=== PATIENT | male | born 1970 | race Caucasian/White ===

== ENCOUNTER 2021-01-22 09:04 | Outpatient (REF) | payer OTHER, SELFPAY ==
[2021-01-22 11:23] LABS: Hematocrit 51.4 % (42-52); Mean Corpuscular HGB Conc 33.1 g/dl (31.0-36.0); Mean Corpuscular Hemoglobin 31.4 pg (27.0-33.0); Mean Platelet Volume 12.9 fL (9.4-12.4); Platelet Count 138 X10*3/uL (160-400); Red Blood Count 5.41 X10*6/uL (4.60-5.80); Red Cell Distribution Width 14.1 % (11.0-16.0); White Blood Count 11.8 X10*3/uL (4.8-10.8)
[2021-01-23 06:06] LABS: Follicle Stimulating Hormone <0.7 mIU/mL (1.6-8.0); Lutenizing Hormone <0.2 mIU/mL (1.5-9.3)
[2021-01-27 14:52] LABS: Testosterone, Free 121.5 pg/mL (35.0-155.0); Testosterone, Total 617 ng/dL (250-1100)
== END 2021-01-22 09:05 | disposition home or self-care (01) ==
LOC: HO.HMGCLDS 09:04
PROVIDERS: Visit Provider Urology
DX: E29.1 Testicular hypofunction (principal); R79.89 Other specified abnormal findings of blood chemistry
CPT/HCPCS: 36415; 83001; 83002; 84402; 84403; 85027

== ENCOUNTER → 2021-02-10 14:12 | Outpatient (BNVA) | payer OTHER, SELFPAY | PROVIDERS: Visit Provider Urology | CPT/HCPCS: Q3014 ==

== ENCOUNTER 2021-08-08 11:53 | Outpatient (REF) | payer OTHER, SELFPAY ==
[2021-08-08 13:46] LABS: Hemoglobin 16.3 g/dl (14.0-18.0); Mean Corpuscular Hemoglobin 32.7 pg (27.0-33.0); Mean Corpuscular Volume 96.4 fL (80-98); Mean Platelet Volume 11.7 fL (9.4-12.4); Platelet Count 134 X10*3/uL (160-400); Red Blood Count 4.98 X10*6/uL (4.60-5.80); Red Cell Distribution Width 13.6 % (11.0-16.0); White Blood Count 7.9 X10*3/uL (4.8-10.8)
[2021-08-08 13:49] LABS: PLT ABN DIST 1
[2021-08-08 14:04] LABS: Prostate Specific Antigen 0.55 ng/mL (<0.05-4.0)
[2021-08-12 15:35] LABS: Testosterone, Total 352 ng/dL (250-1100)
== END 2021-08-08 11:54 | disposition home or self-care (01) ==
LOC: HO.HMGCLDS 11:53
PROVIDERS: Visit Provider Urology
DX: R79.89 Other specified abnormal findings of blood chemistry (principal); N13.8 Other obstructive and reflux uropathy; N40.1 Benign prostatic hyperplasia with lower urinary tract symptoms; E29.1 Testicular hypofunction
CPT/HCPCS: 36415; 84153; 84403; 85027

== ENCOUNTER → 2021-08-14 15:09 | Outpatient (BNVA) | payer OTHER, SELFPAY | PROVIDERS: Visit Provider Urology | DX: R79.89 Other specified abnormal findings of blood chemistry (principal); N52.01 Erectile dysfunction due to arterial insufficiency | CPT/HCPCS: 99212 ==

== ENCOUNTER 2022-02-10 06:44 | Outpatient (REF) | payer OTHER, SELFPAY ==
[2022-02-10 07:24] LABS: Hematocrit 51.7 % (42.0-52.0); Hemoglobin 17.2 g/dl (14.0-18.0); Mean Corpuscular HGB Conc 33.3 g/dl (31.0-36.0); Mean Corpuscular Hemoglobin 31.3 pg (27.0-33.0); Mean Corpuscular Volume 94.2 fL (80.0-98.0); Mean Platelet Volume 12.2 fL (9.4-12.4); Platelet Count 156 X10*3/uL (160-400); Red Blood Count 5.49 X10*6/uL (4.60-5.80); Red Cell Distribution Width 13.3 % (11.0-16.0); White Blood Count 14.5 X10*3/uL (4.8-10.8)
[2022-02-15 12:01] LABS: Testosterone, Total 1097 ng/dL (250-1100)
== END 2022-02-10 06:45 | disposition home or self-care (01) ==
LOC: HO.LAB 06:44
PROVIDERS: Visit Provider Urology
DX: Z12.5 Encounter for screening for malignant neoplasm of prostate (principal); R79.89 Other specified abnormal findings of blood chemistry; N13.8 Other obstructive and reflux uropathy; N40.1 Benign prostatic hyperplasia with lower urinary tract symptoms; E29.1 Testicular hypofunction
CPT/HCPCS: 36415; 84153; 84403; 85027

== ENCOUNTER → 2022-02-17 13:01 | Outpatient (BNVA) | payer OTHER, SELFPAY | PROVIDERS: Visit Provider Urology | DX: N52.01 Erectile dysfunction due to arterial insufficiency (principal); R79.89 Other specified abnormal findings of blood chemistry | CPT/HCPCS: Q3014 ==

== ENCOUNTER 2022-08-13 08:38 | Outpatient (REF) | payer OTHER, SELFPAY ==
[2022-08-13 12:05] LABS: Prostate Specific Antigen 0.59 ng/mL (<0.05-4.0)
[2022-08-19 11:47] LABS: Testosterone, Total 901 ng/dL (250-1100)
== END 2022-08-13 08:39 | disposition home or self-care (01) ==
LOC: HO.HMGCLDS 08:38
PROVIDERS: Visit Provider Urology
DX: Z12.5 Encounter for screening for malignant neoplasm of prostate (principal); R79.89 Other specified abnormal findings of blood chemistry
CPT/HCPCS: 36415; 84153; 84403

== ENCOUNTER → 2022-08-20 12:16 | Outpatient (BNVA) | payer OTHER, SELFPAY | PROVIDERS: Visit Provider Urology | DX: R79.89 Other specified abnormal findings of blood chemistry (principal); N52.01 Erectile dysfunction due to arterial insufficiency | CPT/HCPCS: Q3014 ==

== ENCOUNTER 2023-02-17 08:49 | Outpatient (REF) | payer OTHER, SELFPAY ==
[2023-02-17 11:21] LABS: Hematocrit 49.3 % (42.0-52.0)
[2023-02-23 13:44] LABS: Testosterone, Total 1354 ng/dL (250-1100)
== END 2023-02-17 08:50 | disposition home or self-care (01) ==
LOC: HO.HMGCLDS 08:49
PROVIDERS: Visit Provider Urology
DX: Z12.5 Encounter for screening for malignant neoplasm of prostate (principal); E29.1 Testicular hypofunction; R79.89 Other specified abnormal findings of blood chemistry
CPT/HCPCS: 36415; 84153; 84403; 85014

== ENCOUNTER → 2023-02-25 14:55 | Outpatient (BNVA) | payer OTHER, SELFPAY | PROVIDERS: Visit Provider Urology | DX: N52.01 Erectile dysfunction due to arterial insufficiency (principal) | CPT/HCPCS: Q3014 ==

== ENCOUNTER 2023-10-18 08:18 | Outpatient (REF) | payer OTHER, SELFPAY ==
[2023-10-18 11:27] LABS: Hematocrit 54.3 % (42.0-52.0); Hemoglobin 17.9 g/dl (14.0-18.0); Mean Corpuscular Hemoglobin 31.7 pg (27.0-33.0); Mean Corpuscular Volume 96.1 fL (80.0-98.0); Mean Platelet Volume 12.9 fL (9.4-12.4); Platelet Count 156 X10*3/uL (160-400); Red Blood Count 5.65 X10*6/uL (4.60-5.80); Red Cell Distribution Width 13.4 % (11.0-16.0); White Blood Count 8.6 X10*3/uL (4.8-10.8)
[2023-10-23 13:33] LABS: Testosterone, Total 148 ng/dL (250-1100)
== END 2023-10-18 08:19 | disposition home or self-care (01) ==
LOC: HO.HMGCLDS 08:18
PROVIDERS: Visit Provider Urology
DX: R79.89 Other specified abnormal findings of blood chemistry (principal); Z12.5 Encounter for screening for malignant neoplasm of prostate
CPT/HCPCS: 36415; 84153; 84403; 85027

== ENCOUNTER 2023-10-27 08:38 | Outpatient (AMB) | payer OTHER, SELFPAY ==
--- NOTE | 2023-10-27 08:43 | A.OFFVIS_ITS ---
Intake Intake Visit Reasons: follow up/ labs Intake Note: Patient is Present for Telephone Follow Up labs Urology Med: Sildenafil, Testosterone Antibiotic Allergy: none Blood Thinner:none Allergies No Known Allergies Allergy (Verified 02/25/23 14:56) Medication List - Last Reconciled 10/27/23 by Holger Wing MD atorvastatin 40 mg PO BEDTIME needle (disp) 22 G (BD Regular Bevel Shickley) As directed weekly pantoprazole 40 mg PO DAILY sildenafil 100 mg PO DAILY 30 days syringe with needle (BD Eclipse Luer-Lorena) As directed weekly testosterone cypionate (Depo-Testosterone) 80 mg (0.4 mL) subcut QWEEK 4 weeks HPI HPI Comments History of Present Illness Details Musa PIZARRO is a very pleasant male. He is a patient of Dr Skaggs. He is seen for the following urologic conditions - hypogonadism Telemedicine evaluation 15 minute consultation [facility] isabel Video attempted Taking 0.4 cc per week Current levels low since Has not injected for 3 weeks Refills provided 6 month follow-up labs Hypogonadism: He presents today for further evaluation and followup of his hypogonadism Initial symptoms include erectile dysfunction Yes decreased libido Yes change in mood/depression Yes in muscle size/strength Yes increased fatigue/malaise Yes increased abdominal fat No tender breasts/gynecomastia No hair loss No osteopenia No The onset of symptoms has been Secondary to external testosterone use. Associate conditions include chronic pain with opioid use Yes Methadone obstructive sleep apnea No CAD No obesity No stress - financial, family, employment No heavy alcohol or illicit drug use No Laboratory results 01/17 , baseline, testosterone 10, , LH, FSH < 1 - 08/18 352, PSA 0.55, 48%, 02/16 1097 P 6.8 H 51.7, 08/19 901 0.6, 02/17 1300 P 0.7 Hct 49.3, 10/20 T 148 H 54 Current therapy includes injectable exogenous testosterone - 0.4 cc/week Erectile dysfunction Good response to sildenafil on as needed basis PFSH Medical History Hematuria Hyperlipidemia Mild acid reflux Erectile dysfunction due to arterial insufficiency Low serum testosterone level Surgical History H/O splenectomy Assessment & Plan Assessment & Plan (1) Low serum testosterone level: Code(s): R79.89 - Other specified abnormal findings of blood chemistry (2) Erectile dysfunction due to arterial insufficiency: Code(s): N52.01 - Erectile dysfunction due to arterial insufficiency Plan Six month follow-up labs office Orders: Orders Prostate Specific Antigen 6 Months N52.01 - Erectile dysfunction due to arterial insufficiency Complete Blood Count no Diff 6 Months N52.01 - Erectile dysfunction due to arterial insufficiency Testosterone, Total 6 Months N52.01 - Erectile dysfunction due to arterial insufficiency Patient Instructions: Imaging studies, laboratory and physical exam results were discussed and reviewed in detail. No major barriers to patient understanding were identified. An opportunity to ask questions regarding the treatment plan was provided. All questions were answered. The patient expressed understanding and agreement with the above treatment plan. The patient is aware they should contact our office by phone for worsening of their current condition or the appearance of new urologic symptoms. Compliance is encouraged with any medications and followup testing that is ordered. It is a privilege to participate in the urologic care of your patient. If you have any questions or concerns regarding treatment for the above conditions, or other urologic issues, please do not hesitate to contact me. The office telephone contact is [phone]. This note is constructed using voice recognition software. While every effort has been made to ensure accuracy orthophotography technician errors may have been included. Yours sincerely, Dr Holger Wing MD, [facility] - Urology Providers of Expert, Compassionate Care for the Genitourinary System Telehealth Telehealth Location of provider rendering services: practice address Location of patient: other (work ) Patient Identification confirmed using: Name, : Yes Telehealth method: video Patient verbally consented to treatment: Yes Patient verbally consented to billing insurance company: Yes Patient informed of any privacy concerns related to visit: Yes Coding Level of Care Code Tele Est Pt Level 3 (82727) Diagnoses Low serum testosterone level R79.89 Erectile dysfunction due to arterial insufficiency N52.01
== END 2023-10-27 10:49 | disposition home or self-care (01) ==
LOC: HO.HUSH 08:38
PROVIDERS: Visit Provider Urology
DX: R79.89 Other specified abnormal findings of blood chemistry (principal); N52.01 Erectile dysfunction due to arterial insufficiency
CPT/HCPCS: 99213

== ENCOUNTER → 2023-10-27 08:38 | Outpatient (BNVA) | payer OTHER, SELFPAY | PROVIDERS: Visit Provider Urology ==

== ENCOUNTER 2024-06-01 08:15 | Outpatient (REF) | payer OTHER, SELFPAY ==
[2024-06-01 10:37] LABS: Hematocrit 46.9 % (42.0-52.0); Hemoglobin 15.6 g/dl (14.0-18.0); Mean Corpuscular HGB Conc 33.3 g/dl (31.0-36.0); Mean Corpuscular Hemoglobin 32.4 pg (27.0-33.0); Mean Corpuscular Volume 97.5 fL (80.0-98.0); Mean Platelet Volume 12.9 fL (9.4-12.4); Platelet Count 194 X10*3/uL (160-400); Red Blood Count 4.81 X10*6/uL (4.60-5.80); White Blood Count 15.4 X10*3/uL (4.8-10.8)
[2024-06-01 11:00] LABS: Prostate Specific Antigen 0.89 ng/mL (<0.05-4.0)
[2024-06-05 12:38] LABS: Testosterone, Total 159 ng/dL (250-1100)
== END 2024-06-01 08:16 | disposition home or self-care (01) ==
LOC: HO.HMGCLDS 08:15
PROVIDERS: Visit Provider Urology
DX: N52.01 Erectile dysfunction due to arterial insufficiency (principal); Z12.5 Encounter for screening for malignant neoplasm of prostate
CPT/HCPCS: 36415; 84153; 84403; 85027

== ENCOUNTER 2024-06-06 11:30 | Outpatient (AMB) | payer OTHER, SELFPAY ==
--- NOTE | 2024-06-06 11:33 | MHC.OFFWIV ---
Intake Vital Signs 06/06/24 11:37 Height 5 ft 9 in Weight 175 lb BMI 25.8 BP 130/80 Blood Pressure Location Rt brachial Position Sitting Pulse 78 Pulse Source Pulse Oximeter Temp 97.8 F Temp Source Oral Pulse Oximetry (%) 98 Intake Visit Reasons: Rash upper Torso/vomiting today Intake Note: pt is here for rash upper torso, vomitting today Patient Tobacco Use Status: Current someday Tobacco user Allergies No Known Allergies Allergy (Verified 06/06/24 11:34) Do you need a note to return to daycare/school/sports/work: No HPI HPI Comments History of Present Illness Details Patient is a 54-year-old male complaining of itchy rash times 3 days. He states it is on his torso, his back and a little bit on his legs and arms. He denies any fevers but did say he woke up with a migraine and vomited once, which is now resolved after taking 4 Excedrin. Patient denies any new medications, new detergents, new clothing or lotions. He states he has been sleeping in his truck because he is currently unhoused. He also states he has some depression, and he thinks he had some recent weight loss probably because he has not eating as much as he normally does. He states he is currently on methadone therapy and is compliant with his methadone and all of his medications. [facility] Medical History Hematuria Hyperlipidemia Mild acid reflux Erectile dysfunction due to arterial insufficiency Low serum testosterone level Surgical History H/O splenectomy Social History Patient Tobacco Use Status: Current someday Tobacco user Review of Systems Const All systems reviewed & are unremarkable except as noted in HPI and below Physical Exam Vital Signs: Last Vital Signs Temp 97.8 F 06/06/24 11:37 Pulse 78 06/06/24 11:37 BP 130/80 06/06/24 11:37 Pulse Ox 98 06/06/24 11:37 BMI result Body Mass Index 25.8 Const General: cooperative, healthy appearing, comfortable and no acute distress Orientation/consciousness: patient oriented x3 Limitations: no limitations HEENT Head: Yes normal to inspection Eyes General: appearance normal, both eyes and all related structures Resp Effort & Inspection: normal respiratory effort and able to speak in complete sentences Skin Other: small excoriated papules on lower abdomen, mid back, proximal bilateral knees and a few on bilateral arms, sparing webs of fingers. No signs of infection noted, no ecchymosis, no petechiae, no induration Neuro General: patient oriented x3 Assessment & Plan Assessment & Plan (1) Scabies: Code(s): B86 - Scabies Plan: Educated patient on eradication of scabies, needs to wash all of his clothing, wiped down his truck, explained various specifically on how to use the medication with a repeat in 1-2 weeks. Recommended staying out of work until he does the 1st treatment. Plan See above Medications: New permethrin 5% apply second treatment 14 days after first treatment if live lice remain 1 appl topical Q14D 60 grams 0RF Coding Level of Care Code Est Pt Level 3 (67908) Diagnoses Scabies B86
[2024-06-06 11:37] VITALS: BP 130/80; PULSE 78; TEMP 36.6; O2SAT 98; BMI 25.8
== END 2024-06-06 12:52 | disposition home or self-care (01) ==
PROVIDERS: Visit Provider Physician Assistant
DX: B86 Scabies (principal)
CPT/HCPCS: 99213

== ENCOUNTER 2024-06-29 13:36 | Outpatient (AMB) | payer OTHER, SELFPAY ==
--- NOTE | 2024-06-29 13:39 | MHC.OFFVIS ---
Intake Visit Reasons: follow up CBC/PSA/Testo Intake Note: Patient is present for Telephone LAB Follow up Urology Med: Sildenafil, Testosterone Antibiotic Allergy: None Blood Thinner: None Patient is requesting a refill on his Medications Lockstitch Lining Setter Required: No Accompanied by: Self / Same As Patient Allergies No Known Allergies Allergy (Verified 06/29/24 13:40) HPI Comments Details: Musa PIZARRO is a very pleasant male. He is a patient of Dr Skaggs. He is seen for the following urologic conditions - hypogonadism Telemedicine evaluation 15 minute consultation [employer] isabel Video attempted Taking 0.4 cc per week Current levels low since Has not injected for 3 weeks Refills provided 6 month follow-up labs Hypogonadism: He presents today for further evaluation and followup of his hypogonadism Initial symptoms include erectile dysfunction Yes decreased libido Yes change in mood/depression Yes in muscle size/strength Yes increased fatigue/malaise Yes increased abdominal fat No tender breasts/gynecomastia No hair loss No osteopenia No The onset of symptoms has been Secondary to external testosterone use. Associate conditions include chronic pain with opioid use Yes Methadone obstructive sleep apnea No CAD No obesity No stress - financial, family, employment No heavy alcohol or illicit drug use No Laboratory results 01/17 , baseline, testosterone 10, , LH, FSH < 1 - 08/18 352, PSA 0.55, 48%, 02/16 1097 P 6.8 H 51.7, 08/19 901 0.6, 02/17 1300 P 0.7 Hct 49.3, 10/20 T 148 H 54 Current therapy includes injectable exogenous testosterone - 0.4 cc/week Erectile dysfunction Good response to sildenafil on as needed basis PFSH Medical History Hematuria Hyperlipidemia Mild acid reflux Erectile dysfunction due to arterial insufficiency Low serum testosterone level Surgical History H/O splenectomy Social History Patient Tobacco Use Status: Current someday Tobacco user Review of Systems Const All systems reviewed & are unremarkable except as noted in HPI and below Reports no additional complaints Resp Reports no additional complaints GI Reports no additional complaints Reports as per HPI Musc Reports no additional complaints Physical Exam Telemedicine evaluation Appropriate responses Regular breathing rate and rhythm HEENT Head: Yes normal to inspection Ears: hearing grossly normal bilaterally Eyes General: appearance normal, both eyes and all related structures Neck Neck: Yes normal visual inspection Chest Chest palpation & inspection: normal inspection of the chest Resp Effort & Inspection: normal respiratory effort and able to speak in complete sentences Telehealth Telehealth Telehealth Platform: [employer] Location of provider rendering services: practice address Location of patient: other (work ) Patient Identification confirmed using: Name, : Yes Telehealth method: video Patient verbally consented to treatment: Yes Patient verbally consented to billing insurance company: Yes Patient informed of any privacy concerns related to visit: Yes Minutes spent on Phone/Video with Pt.: 15 Assessment & Plan Assessment & Plan (1) Low serum testosterone level: Code(s): R79.89 - Other specified abnormal findings of blood chemistry Category: Medical (2) Erectile dysfunction due to arterial insufficiency: Code(s): N52.01 - Erectile dysfunction due to arterial insufficiency Category: Medical Plan Six month follow-up lab work Orders: Orders Testosterone, Total 6 Months R79.89 - Other specified abnormal findings of blood chemistry Complete Blood Count no Diff 6 Months R79.89 - Other specified abnormal findings of blood chemistry Prostate Specific Antigen 6 Months R79.89 - Other specified abnormal findings of blood chemistry Medications: Refilled testosterone cypionate (Depo-Testosterone) 80 mg (0.4 mL) subcut QWEEK 2 mL 5RF 4 weeks E29.1 - Testicular hypofunction, [id number] sildenafil administer 60 minutes before intended activity 100 mg PO DAILY 30 tabs 5RF sexual activity 30 days N52.01 - Erectile dysfunction due to arterial insufficiency, N52.9 - Male erectile dysfunction, unspecified syringe with needle (BD Eclipse Luer-Lorena) As directed weekly 50 ea 0RF N52.01 - Erectile dysfunction due to arterial insufficiency Patient Instructions: Imaging studies, laboratory and physical exam results were discussed and reviewed in detail. No major barriers to patient understanding were identified. An opportunity to ask questions regarding the treatment plan was provided. All questions were answered. The patient expressed understanding and agreement with the above treatment plan. The patient is aware they should contact our office by phone for worsening of their current condition or the appearance of new urologic symptoms. Compliance is encouraged with any medications and followup testing that is ordered. It is a privilege to participate in the urologic care of your patient. If you have any questions or concerns regarding treatment for the above conditions, or other urologic issues, please do not hesitate to contact me. The office telephone contact is [phone]. This note is constructed using voice recognition software. While every effort has been made to ensure accuracy petroleum products district supervisor errors may have been included. Yours sincerely, Dr Holger Wing MD, [facility] - Urology Providers of Expert, Compassionate Care for the Genitourinary System Coding Level of Care Code Tele Est Pt Level 3 (40377) Diagnoses Low serum testosterone level R79.89 Erectile dysfunction due to arterial insufficiency N52.01
== END 2024-06-29 14:15 | disposition home or self-care (01) ==
LOC: HO.HUSH 13:36
PROVIDERS: Visit Provider Urology
DX: R79.89 Other specified abnormal findings of blood chemistry (principal); N52.01 Erectile dysfunction due to arterial insufficiency
CPT/HCPCS: 99213

== ENCOUNTER → 2024-06-29 13:36 | Outpatient (BNVA) | payer OTHER, SELFPAY | PROVIDERS: Visit Provider Urology ==

== ENCOUNTER 2024-09-18 09:31 | Outpatient (AMB) | payer OTHER, SELFPAY ==
--- NOTE | 2024-09-18 09:33 | A.OFFVIS_ITS ---
Intake Visit Reasons: Urination Issues/Slow Intake Note: Patient is present for URINATION ISSUES/SLOW Urology Medication:SILDENAFIL, TESTOSTERONE Antibiotic Allergy:NONE Blood Thinner:NONE Bryologist Required: No Allergies No Known Allergies Allergy (Verified 09/18/24 09:34) HPI Comments Details: Musa PIZARRO is a very pleasant male. He is a patient of Dr Skaggs. He is seen for the following urologic conditions - hypogonadism - urination Current issue is postvoid dribbling Information provided about male pelvic floor exercises Continue with testosterone 0.4 cc per week Is on methadone Hypogonadism: He presents today for further evaluation and followup of his hypogonadism Initial symptoms include erectile dysfunction Yes decreased libido Yes change in mood/depression Yes in muscle size/strength Yes increased fatigue/malaise Yes increased abdominal fat No tender breasts/gynecomastia No hair loss No osteopenia No The onset of symptoms has been Secondary to external testosterone use. Associate conditions include chronic pain with opioid use Yes Methadone obstructive sleep apnea No CAD No obesity No stress - financial, family, employment No heavy alcohol or illicit drug use No Laboratory results 01/17 , baseline, testosterone 10, , LH, FSH < 1 - 08/18 352, PSA 0.55, 48%, 02/16 1097 P 6.8 H 51.7, 08/19 901 0.6, 02/17 1300 P 0.7 Hct 49.3, 10/20 T 148 H 54, 06/20 159 Current therapy includes injectable exogenous testosterone - 0.4 cc/week Erectile dysfunction Good response to sildenafil on as needed basis PFSH Medical History Hematuria Hyperlipidemia Mild acid reflux Erectile dysfunction due to arterial insufficiency Low serum testosterone level Surgical History H/O splenectomy Social History Patient Tobacco Use Status: Current someday Tobacco user Review of Systems Const Denies chills and Denies fever(s) Card Reports no additional complaints and Denies syncope Resp Denies cough GI Denies abdominal pain and Denies heartburn Reports as per HPI and Denies change in libido Neuro Denies syncope Psych Denies change in libido Endo Denies change in libido Physical Exam Const General: cooperative, healthy appearing, comfortable and no acute distress Orientation/consciousness: patient oriented x3 HEENT Face and sinus: Yes normal facial exam Mouth: moist mucous membranes Neck Neck: Yes normal visual inspection, Yes full ROM and Yes trachea midline Chest Chest palpation & inspection: normal inspection of the chest Resp Effort & Inspection: normal respiratory effort, able to speak in complete sentences and no respiratory distress GI Inspection: Yes normal to inspection Back/Spine/Pelvis Cervical Spine: normal cervical lordosis Thoracic/Lumbar Spine: thoracic and lumbar spine normal to inspection Skin General skin exam: no rashes or lesions noted Neuro General: patient oriented x3, gait normal, tone normal and moves all extremities Extrem General: Yes normal to inspection and Yes capillary refill normal Results AMB Urinalysis, Automated UA Leukoctes 0 Valerie/uL Last Edit by LEXIE Chong on 09/18/24 09:41 UA Nitrite Negative Last Edit by LEXIE Chong on 09/18/24 09:41 UA Urobilinogen 0.2 mg/dL Last Edit by LEXIE Chong on 09/18/24 09:4 1 UA Protein 0 mg/dL Last Edit by LEXIE Chong on 09/18/24 09:41 UA pH 6.5 Last Edit by LEXIE Chong on 09/18/24 09:41 UA Blood 0 Paul/uL Last Edit by LEXIE Chong on 09/18/24 09:41 UA Specific [place] 1.010 Last Edit by LEXIE Chong on 09/18/24 09: 41 UA Ketone Negative Last Edit by LEXIE Chong on 09/18/24 09:41 UA Bilirubin 0 mg/dL Last Edit by LEXIE Chong on 09/18/24 09:41 UA Glucose 0 mg/dL Last Edit by LEXIE Chong on 09/18/24 09:41 Results Reviewed Results Reviewed: Laboratory Last Values Urine pH (Auto) 6.5 09/18/24 09:40 Specific [place] (Auto) 1.010 09/18/24 09:40 Urine Protein (Auto) 0 mg/dL 09/18/24 09:40 Glucose (UA)(Auto) 0 mg/dL 09/18/24 09:40 Urine Ketones (Auto) Negative 09/18/24 09:40 Urine Blood (Auto) 0 Paul/uL 09/18/24 09:40 Urine Nitrite (Auto) Negative 09/18/24 09:40 Urine Bilirubin (Auto) 0 mg/dL 09/18/24 09:40 Urine Urobilinogen (Auto) 0.2 mg/dL 09/18/24 09:40 Leukocyte Esterase (Auto) 0 Valerie/uL 09/18/24 09:40 Assessment & Plan Assessment & Plan (1) Benign prostatic hyperplasia (BPH) with post-void dribbling: Code(s): N40.1 - Benign prostatic hyperplasia with lower urinary tract symptoms; N39.43 - Post-void dribbling Category: Medical (2) Low serum testosterone level: Code(s): R79.89 - Other specified abnormal findings of blood chemistry Category: Medical (3) Erectile dysfunction due to arterial insufficiency: Code(s): N52.01 - Erectile dysfunction due to arterial insufficiency Category: Medical Plan Keep follow-up Orders: Orders AMB Urinalysis Automated Today Z13.9 - Encounter for screening, unspecified Patient Instructions: Imaging studies, laboratory and physical exam results were discussed and reviewed in detail. No major barriers to patient understanding were identified. An opportunity to ask questions regarding the treatment plan was provided. All questions were answered. The patient expressed understanding and agreement with the above treatment plan. The patient is aware they should contact our office by phone for worsening of their current condition or the appearance of new urologic symptoms. Compliance is encouraged with any medications and followup testing that is ordered. It is a privilege to participate in the urologic care of your patient. If you have any questions or concerns regarding treatment for the above conditions, or other urologic issues, please do not hesitate to contact me. The office te jose contact is [phone]. This note is constructed using voice recognition software. While every effort has been made to ensure accuracy community integration specialist errors may have been included. Yours sincerely, Dr Holger Wing MD, [facility] - Urology Providers of Expert, Compassionate Care for the Genitourinary System Coding Level of Care Code Est Pt Level 3 (43568) Diagnoses Benign prostatic hyperplasia (BPH) with post-void dribbling N40.1; N39.43 Low serum testosterone level R79.89 Erectile dysfunction due to arterial insufficiency N52.01
== END 2024-09-18 10:23 | disposition home or self-care (01) ==
PROVIDERS: Visit Provider Urology
DX: N40.1 Benign prostatic hyperplasia with lower urinary tract symptoms (principal); N39.43 Post-void dribbling; R79.89 Other specified abnormal findings of blood chemistry; N52.01 Erectile dysfunction due to arterial insufficiency; Z13.9 Encounter for screening, unspecified
CPT/HCPCS: 99213

== ENCOUNTER → 2024-09-18 09:31 | Outpatient (BNVA) | payer OTHER, SELFPAY | PROVIDERS: Visit Provider Urology | DX: N40.1 Benign prostatic hyperplasia with lower urinary tract symptoms (principal); N39.43 Post-void dribbling; N52.01 Erectile dysfunction due to arterial insufficiency; R79.89 Other specified abnormal findings of blood chemistry | CPT/HCPCS: 81003; 99212 ==

== ENCOUNTER 2025-01-01 11:42 | Outpatient (AMB) | payer OTHER, SELFPAY ==
--- NOTE | 2025-01-01 11:45 | A.OFFVIS_ITS ---
Intake Visit Reasons: 6m/labs Intake Note: Patient is present for 6M/LABS Urology Medication:SILDENAFIL,TESTOSTERONE Antibiotic Allergy:NONE Blood Thinner:NONE Retail And Promotions Coordinator Required: No Allergies No Known Allergies Allergy (Verified 01/01/25 11:45) HPI Comments Details: Musa PIZARRO is a very pleasant male. He is a patient of Dr Skaggs. He is seen for the following urologic conditions - hypogonadism - urination Current issue is postvoid dribbling Information provided about male pelvic floor exercises Continue with testosterone 0.4 cc per week Is on methadone Hypogonadism: He presents today for further evaluation and followup of his hypogonadism Initial symptoms include erectile dysfunction Yes decreased libido Yes change in mood/depression Yes in muscle size/strength Yes increased fatigue/malaise Yes increased abdominal fat No tender breasts/gynecomastia No hair loss No osteopenia No The onset of symptoms has been Secondary to external testosterone use. Associate conditions include chronic pain with opioid use Yes Methadone obstructive sleep apnea No CAD No obesity No stress - financial, family, employment No heavy alcohol or illicit drug use No Laboratory results 01/17 , baseline, testosterone 10, , LH, FSH < 1 - 08/18 352, PSA 0.55, 48%, 02/16 1097 P 6.8 H 51.7, 08/19 901 0.6, 02/17 1300 P 0.7 Hct 49.3, 10/20 T 148 H 54, 06/20 159 Current therapy includes injectable exogenous testosterone - 0.4 cc/week Erectile dysfunction Good response to sildenafil on as needed basis PFSH Medical History Hematuria Hyperlipidemia Mild acid reflux Erectile dysfunction due to arterial insufficiency Low serum testosterone level Surgical History H/O splenectomy Social History Patient Tobacco Use Status: Current someday Tobacco user Results AMB Urinalysis, Automated UA Leukoctes 0 Valerie/uL Last Edit by LEXIE Chong on 01/01/25 12:09 UA Nitrite Negative Last Edit by LEXIE Chong on 01/01/25 12:09 UA Urobilinogen 0.2 mg/dL Last Edit by LEXIE Chong on 01/01/25 12:0 9 UA Protein 30 mg/dL Last Edit by LEXIE Chong on 01/01/25 12:09 UA pH 6.0 Last Edit by LEXIE Chong on 01/01/25 12:09 UA Blood 10 Paul/uL Last Edit by LEXIE Chong on 01/01/25 12:09 UA Specific [place] 1.015 Last Edit by LEXIE Chong on 01/01/25 12: 09 UA Ketone Negative Last Edit by LEXIE Chong on 01/01/25 12:09 UA Bilirubin 0 mg/dL Last Edit by LEXIE Chong on 01/01/25 12:09 UA Glucose 0 mg/dL Last Edit by LEXIE Chong on 01/01/25 12:09 Results Reviewed Results Reviewed: Laboratory Last Values Urine pH (Auto) 6.0 01/01/25 12:08 Specific [place] (Auto) 1.015 01/01/25 12:08 Urine Protein (Auto) 30 mg/dL 01/01/25 12:08 Glucose (UA)(Auto) 0 mg/dL 01/01/25 12:08 Urine Ketones (Auto) Negative 01/01/25 12:08 Urine Blood (Auto) 10 Paul/uL 01/01/25 12:08 Urine Nitrite (Auto) Negative 01/01/25 12:08 Urine Bilirubin (Auto) 0 mg/dL 01/01/25 12:08 Urine Urobilinogen (Auto) 0.2 mg/dL 01/01/25 12:08 Leukocyte Esterase (Auto) 0 Valerie/uL 01/01/25 12:08 Assessment & Plan Assessment & Plan Orders: Orders Testosterone, Total 6 Months R7 - Other specified abnormal findings of blood chemistry Complete Blood Count no Diff 6 Months - Other specified abnormal findings of blood chemistry Testosterone, Free/Total Today R68.82 - Decreased libido, R7 - Other specified abnormal findings of blood chemistry AMB Urinalysis Automated Today Z13.9 - Encounter for screening, unspecified Prostate Specific Antigen 6 Months R7 - Other specified abnormal findings of blood chemistry Medications: New needle (disp) 22 G (Easy Touch Hypodermic Needle) As directed for T injections 30 ea 0RF R79.89 - Other specified abnormal findings of blood chemistry syringe (disposable) (Monoject TB Luer Lorena) As directed for T administration 60 ea 0RF E29.1 - Testicular hypofunction, R79.89 - Other specified abnormal findings of blood chemistry Coding
--- OUTSIDE RECORDS SUMMARY | 2025-01-01 12:39 | XMS_ITS | Clinical Summary ---
Author Organization [facility] ity Address [address] [place] [address] Care Team Providers Care Wire Repairer Name Role Phone Unavailable Primary Care Provider Unavailabl e Social History Tobacco Use Types Packs/Day Years Used Date Smoking Tobacco: Never Assessed Sex and Gender Information Value Date Recorded Sex Assigned at Not on file Gender Identity Not on file Sexual Orientation Not on file Plan of Treatment Health Maintenance Due Date Last Done Comments DTaP,Tdap,and Td Vaccines (1 - Tdap) 1989 Hepatitis B Vaccines (1 of 3 - 19+ 3-dose series) 1989 Zoster Vaccines (1 of 2) 01/28/2020 Cholesterol Screening (Lipid Panel) 10/30/2022 Colorectal Cancer Screening: Colonoscopy 10/30/2022 Depression Screening 10/30/2022 HIV Screening 10/30/2022 Hepatitis C Screening 10/30/2022 Social Influencers of Health Screening 10/30/2022 COVID-19 Vaccine (2023-2 5 season) 2024 Influenza Vaccine (#1) 2024 HIB Vaccines Aged Out No longer eligi ble based on patient's age to complete this topic HPV Vaccines Aged Out No longer eligi ble based on patient's age to complete this topic Hepatitis A Vaccines Aged Out No long er eligible based on patient's age to complete this topic IPV Vaccines Aged Out No longer eligi ble based on patient's age to complete this topic MMR Vaccines Aged Out No longer eligi ble based on patient's age to complete this topic Meningococcal ACWY Vaccine Aged Out N o longer eligible based on patient's age to complete this topic Pneumococcal Vaccine: Pediat rics (0 to 5 Years) and At-Risk Patients (6 to 64 Years) Aged Out No longer eligible b ased on patient's age to complete this topic RSV Immunization Patients Un gmeini 20 months Aged Out No longer eligible b ased on patient's age to complete this topic Varicella Vaccines Aged Out No longer eligible based on patient's age to complete this topic
== END 2025-01-01 12:34 | disposition home or self-care (01) ==
PROVIDERS: Visit Provider Urology
DX: Z13.9 Encounter for screening, unspecified (principal)

== ENCOUNTER 2025-01-01 12:35 | Outpatient (REF) | payer OTHER, SELFPAY ==
--- OUTSIDE RECORDS SUMMARY | 2025-01-01 13:05 | XMS_ITS | Clinical Summary ---
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
[2025-01-01 13:14] LABS: Hematocrit 48.5 % (42.0-52.0); Hemoglobin 16.6 g/dl (14.0-18.0); Mean Corpuscular HGB Conc 34.2 g/dl (31.0-36.0); Mean Corpuscular Hemoglobin 31.7 pg (27.0-33.0); Mean Corpuscular Volume 92.7 fL (80.0-98.0); Mean Platelet Volume 11.8 fL (9.4-12.4); NRBC Pct Auto 0.4 /100WBC (0.0-0.2); Platelet Count 227 X10*3/uL (160-400); Red Blood Count 5.23 X10*6/uL (4.60-5.80); White Blood Count 13.6 X10*3/uL (4.8-10.8)
[2025-01-01 14:34] LABS: Prostate Specific Antigen 1.56 ng/mL (<0.05-4.0)
[2025-01-06 18:29] LABS: Testosterone, Total 595 ng/dL (250-1100)
[2025-01-08 01:03] LABS: Testosterone, Free 90.4 pg/mL (35.0-155.0); Testosterone, Total 572 ng/dL (250-1100)
== END 2025-01-01 12:36 | disposition home or self-care (01) ==
LOC: HO.10HDL 12:35
PROVIDERS: Visit Provider Urology
DX: Z12.5 Encounter for screening for malignant neoplasm of prostate (principal); R79.89 Other specified abnormal findings of blood chemistry; R68.82 Decreased libido; N52.01 Erectile dysfunction due to arterial insufficiency; N40.1 Benign prostatic hyperplasia with lower urinary tract symptoms; N39.43 Post-void dribbling
CPT/HCPCS: 36415; 81003; 84153; 84402; 84403; 85027; 99212

== ENCOUNTER 2025-05-15 08:28 | Outpatient (AMB) | payer OTHER, SELFPAY ==
[2025-05-15 08:30] VITALS: BP 132/78; PULSE 102; TEMP 36.8; O2SAT 95; BMI 26.2
--- NOTE | 2025-05-15 08:30 | MHC.OFFWIV ---
Intake Vital Signs 05/15/25 08:30 Height 5 ft 9 in Weight 177 lb 6 oz BMI 26.2 BP 132/78 Blood Pressure Location Rt brachial Position Sitting Pulse 102 H Pulse Source Pulse Oximeter Temp 98.2 F Temp Source Oral Pulse Oximetry (%) 95 Oxygen Delivery Method Room Air Intake Visit Reasons: EP fall, lt shoulder pain Intake Note: Pt presents to the office today for c/o a fall yesterday when he fell on his left shoulder. Pt states he also has dentures and chipped his tooth. Patient Tobacco Use Status: Current someday Tobacco user Allergies No Known Allergies Allergy (Verified 05/15/25 08:30) HPI HPI Comments History of Present Illness Details History 55 yo male who presents today for left shoulder pain. 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 He states that he fell on the curb on his face and left shoulder. He states that he chipped his tooth. He states that he hurt his left shoulder. He states that he has been having a constant pain in the front of the left shoulder with no radiation of the pain. He has a bruise and it hurts to touch the area. He states that he has pain with lifting the arm. He has no pain in the arm. He has not taken anything for the pain. He states that he is on Methadone and had a slip up 2 days ago. 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 He needs a note. He denies numbness or tingling. He denies neck pain, CP, SOB, arm pain, or back pain. Physical Exam General: cooperative, healthy appearing and comfortable, patient oriented x3 Effort & Inspection: normal respiratory effort and able to speak in complete sentences Back/spine: no CVA tenderness bilaterally Neck: No Cervical tenderness Extremities: FROM of the left shoulder. Click noted on the left. Bruise noted on the anterior shoulder. No deformity noted. TTP of the AC joint. No TTP of the upper arm, elbow, or forearm on the left. Supination and pronation of the left UE intact. Lift test normal on the left, normal apprehension test noted. Normal can test noted. Motor strength normal bilaterally, sensation intact bilaterally. 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 [facility] Medical History Hematuria Hyperlipidemia Mild acid reflux Erectile dysfunction due to arterial insufficiency Low serum testosterone level Surgical History H/O splenectomy Social History Patient Tobacco Use Status: Current someday Tobacco user Review of Systems Const All systems reviewed & are unremarkable except as noted in HPI and below Physical Exam Vital Signs: Last Vital Signs Temp 98.2 F 05/15/25 08:30 Pulse 102 H 05/15/25 08:30 BP 132/78 05/15/25 08:30 Pulse Ox 95 05/15/25 08:30 Oxygen Delivery Method Room Air 05/15/25 08:30 BMI result Body Mass Index 26.2 Assessment & Plan Assessment & Plan (1) Shoulder pain, left: Code(s): M25.512 - Pain in left shoulder Qualifiers: Chronicity: acute Qualified Code(s): M25.512 - Pain in left shoulder Plan Most likely contusion vs strain vs fracture vs dislocation Plan - Offered him an x-ray and he declined - Tylenol or Motrin as needed - Activities as tolerated - rest, ice and elevation to the left arm and shoulder - work note was given - follow up with his PCP Coding Level of Care Code New Pt Level 3 (46636) Diagnoses Acute pain of left shoulder M25.512 Chronicity: acute
--- OUTSIDE RECORDS SUMMARY | 2025-05-15 08:50 | XMS_ITS | Clinical Summary ---
Author Organization [facility] it Address [address] [place] [address] Care Team Providers Care Foreign Broadcast Specialist Name Role Phone Unavailable Primary Care Provider Unavailabl e Social History Tobacco Use Types Packs/Day Years Used Date Smoking Tobacco: Never Assessed Sex and Gender Information Value Date Recorded Sex Assigned at Not on file Legal Sex Male 10:12 PM EST Gender Identity Not on file Sexual Orientation Not on file Plan of Treatment Health Maintenance Due Date Last Done Comments DTaP,Tdap,and Td Vaccines (1 - Tdap) 1989 Hepatitis B Vaccines (1 of 3 - 19+ 3-dose series) 1989 Pneumococcal Vaccine: 50+ Ye ars (1 of 1 - PCV) 01/28/2020 Zoster Vaccines (1 of 2) 01/28/2020 Cholesterol Screening (Lipid Panel) 10/30/2022 Colorectal Cancer Screening: Colonoscopy 10/30/2022 Depression Screening 10/30/2022 HIV Screening 10/30/2022 Hepatitis C Screening 10/30/2022 Social Influencers of Health Screening 10/30/2022 COVID-19 Vaccine (2023-2 5 season) 2024 Influenza Vaccine (Season Ended) 2025 HIB Vaccines Aged Out No longer eligi [...] patient's age to complete this topic Meningococcal B Vaccine Aged Out No l onger eligible based on patient's age to complete [...]
== END 2025-05-15 08:49 | disposition home or self-care (01) ==
PROVIDERS: Visit Provider Physician Assistant Medical
DX: M25.512 Pain in left shoulder (principal)

== ENCOUNTER → 2025-05-15 08:28 | Outpatient (BNVA) | payer OTHER, SELFPAY | PROVIDERS: Visit Provider Physician Assistant Medical | DX: M25.512 Pain in left shoulder (principal) | CPT/HCPCS: 99202 ==

== ENCOUNTER 2025-07-24 09:57 | Outpatient (AMB) | payer OTHER, SELFPAY ==
--- OUTSIDE RECORDS SUMMARY | 2025-07-24 10:40 | XMS_ITS | Clinical Summary ---
Author Organization [facility] ity Address [address] [place] [address] Care Team Providers Care Customer Success Associate Name Role Phone Unavailable Primary Care Provider [...] Panel) 10/30/2022 Colorectal Cancer Screening: Colonoscopy 10/30/2022 HIV Screening 10/30/2022 Hepatitis C Screening 10/30/2022 Social Influencers of Health Screening 10/30/2022 COVID-19 Vaccine (1 - 2023-2 5 season) 2024 Depression Screening 11/28/2024 Influenza Vaccine (#1) 2025 HIB Vaccines Aged Out No longer [...]
[2025-07-24 10:41] VITALS: BP 126/64; PULSE 109; TEMP 37.6; O2SAT 96; BMI 26.1
--- NOTE | 2025-07-24 10:41 | AM.OFFWIN_ITS ---
Intake Vital Signs 07/24/25 10:41 Height 5 ft 9 in Weight 177 lb BMI 26.1 BP 126/64 Blood Pressure Location Lt brachial Position Sitting Pulse 109 H Pulse Source Pulse Oximeter Temp 99.7 F Temp Source Oral Pulse Oximetry (%) 96 Oxygen Delivery Method Room Air Intake Visit Reasons: EP-Esophagitis [phone] Intake Note: pt presents with concern for esophagitis flare, nausea and vomiting for 4 days Patient Tobacco Use Status: Current someday Tobacco user Allergies No Known Allergies Allergy (Verified 07/24/25 10:44) Do you need a note to return to daycare/school/sports/work: Yes HPI HPI Comments History of Present Illness Details History of Present Illness - The patient is a 55-year-old male pres enting with left sided chest pain and burning sensation in the mid abdomen. - Reports a history of esophagitis with recent exacerbation, experiencing chest tightening and burning in the upper abdomen. - Has been eating Tums but has no relief . - Symptoms started 24 hours ago, with ep isodes of nausea and vomiting dark material, no blood observed. - Describes sensation of hot gas and bur mae in the chest, attributed to acid reflux. - History of substance use disorder, rec ent heroin and cocaine use 2 days ago, currently on methadone. - Reports anxiety and panic attacks, exa cerbated by substance use and personal stressors, including mother's recent . - Experiences constipation, with recent improvement as he had a bowel movement this am and a large one yesterday. - He has a metal taste in his mouth and feels like he has a fire in his throat. - He denies drug use today. - He denies fever, chills, SOB, or diarr hea. Physical Exam General: Cooperative, healthy appearing, no acute distress and well developed Orientation: Patient oriented x3 Limitations: No limitations Neck: Normal visual inspection and Yes full ROM. No carotid bruits noted. Respiratory: Normal respiratory effort and able to speak in complete sentences. Clear to auscultation bilaterally. No w/r/r noted Cardiovascular: Regular rate and rhythm. Normal S1 and S2. No m/r/g noted GI: Hypoactive BS noted. Soft, non-distended. Tenderness noted upon palpation in the epigastric region and LUQ. +guarding noted. No Arndt's noted. No Rovsing noted. Negative CVA tenderness noted. Skin: No rashes or lesions noted. Track bishop noted on the hands and arms bilaterally. Neuro: Patient oriented x3. Anxious, pacing the room Extremities: Normal to inspection. No edema noted. Patient was informed and verbally consented to the use of an ambient scribe for clinic note documentation during this visit. [facility] Medical History Hematuria Hyperlipidemia Mild acid reflux Erectile dysfunction due to arterial insufficiency Low serum testosterone level Surgical History H/O splenectomy Social History Patient Tobacco Use Status: Current someday Tobacco user Review of Systems Const All systems reviewed & are unremarkable except as noted in HPI and below Physical Exam Vital Signs: Last Vital Signs Temp 99.7 F 07/24/25 10:41 Pulse 109 H 07/24/25 10:41 BP 126/64 07/24/25 10:41 Pulse Ox 96 07/24/25 10:41 Oxygen Delivery Method Room Air 07/24/25 10:41 BMI result Body Mass Index 26.1 Results Reviewed Results Reviewed: Reviewed his EKG in the office Assessment & Plan Assessment & Plan (1) Left-sided chest pain: Code(s): R07.9 - Chest pain, unspecified Plan Most likely gastritis vs PUD vs h pylori vs endocarditis vs pericarditis EKG in the office- sinus tachycardia, No ST elevations noted. Order an h pylori test- was not performed as pt went to the ER plan - Perform an EKG to rule out cardiac causes of chest pain. - Consider acid suppression therapy, such as proton pump inhibitors. - Suggested he should go to the ER for further work up - He was agreeable and was going to get a ride to ER Coding Level of Care Code Est Pt Level 3 (59662) Diagnoses Left-sided chest pain R07.9
== END 2025-07-24 12:09 | disposition home or self-care (01) ==
PROVIDERS: Visit Provider Physician Assistant Medical
DX: R07.9 Chest pain, unspecified (principal)

== ENCOUNTER → 2025-07-24 09:57 | Outpatient (BNVA) | payer OTHER, SELFPAY | PROVIDERS: Visit Provider Physician Assistant Medical | DX: K21.9 Gastro-esophageal reflux disease without esophagitis (principal); R07.9 Chest pain, unspecified; F41.9 Anxiety disorder, unspecified; K59.00 Constipation, unspecified | CPT/HCPCS: 93005; 99212 ==